=== PATIENT | male | born 1940 ===

== ENCOUNTER → 2021-05-26 | Outpatient (CLI) | payer MEDICARE | END | disposition home or self-care (01) | LOC: LAB SHORT 16:16 | DX: L72.0 Epidermal cyst (principal) | CPT/HCPCS: 88304 ==

== ENCOUNTER → 2021-11-18 | Outpatient (CLI) | payer MEDICARE | END | disposition home or self-care (01) | LOC: LAB SHORT 15:19 → PLD 15:19 → LAB 15:19 | DX: L57.0 Actinic keratosis (principal) | CPT/HCPCS: 88305 ==

== ENCOUNTER → 2023-06-24 | Outpatient (CLI) | payer MEDICARE | LOC: LAB 07:40 → LAB SHORT 07:40 | DX: D22.9 Melanocytic nevi, unspecified (principal); D48.5 Neoplasm of uncertain behavior of skin; L82.0 Inflamed seborrheic keratosis | CPT/HCPCS: 88305 ==

== ENCOUNTER → 2023-07-16 | Outpatient (CLI) | payer MEDICARE | END | disposition home or self-care (01) | LOC: LAB 14:28 → LAB SHORT 14:28 | DX: D22.39 Melanocytic nevi of other parts of face (principal); D03.39 Melanoma in situ of other parts of face | CPT/HCPCS: 88305 ==

== ENCOUNTER → 2023-07-30 | Outpatient (CLI) | payer MEDICARE | LOC: LAB 08:28 → LAB SHORT 08:28 | DX: D03.39 Melanoma in situ of other parts of face (principal) | CPT/HCPCS: 88305 ==